=== PATIENT | male | born 1975 ===

== ENCOUNTER 2017-04-13 17:11 | Inpatient (IN) | payer OTHER ==
[2017-04-13] VITALS (315 sets, daily range): BP systolic 128–178; BP diastolic 89–113; PULSE 116–124; TEMP 97.5–99.6; O2SAT 79–100
[~2017-04-13] VITALS: Ht 182.9 cm; Wt 72.8 kg
[2017-04-13 18:50] LABS: BASO # 0.1 (0.0-0.2); BASO % 1.2 % (0.0-2.0); EOS % 0.3 % (0-4.0); GRAN # 7.1 (1.4-6.5); GRAN % 65.8 % (42.2-75.2); HEMATOCRIT 40.5 % (42.0-52.0); HEMOGLOBIN 13.5 g/dl (13.5-18.0); LYMPH % 18.8 % (20.0-51.0); MEAN CELL VOLUME 96 fl (80.0-100.0); MEAN CORPUSCULAR HEMOGLOBIN 32 pg (27.0-31.0); MEAN CORPUSCULAR HGB CONC 33 g/dl (33.0-37.0); MEAN PLATELET VOLUME 10.3 fl (7.4-10.4); MONO # 1.4 (0.1-0.6); MONO % 13.2 % (1.7-9.3); PLATELET COUNT 341 K/mm3 (130-400); WHITE BLOOD COUNT 10.7 K/mm3 (4.8-10.8)
[2017-04-13 19:01] LABS: ALBUMIN 4.3 gm/dL (3.5-5.0); BILIRUBIN,TOTAL 0.8 mg/dL (0.0-1.0); CALCIUM 9.2 mg/dL (8.4-10.2); CREATININE, serum 0.75 mg/dL (0.66-1.25); MAGNESIUM 1.7 mg/dL (1.6-2.3); POTASSIUM 3.7 mmol/L (3.4-5.0); TOTAL PROTEIN 6.9 gm/dL (6.4-8.2)
[2017-04-13 19:05] LABS: PROTHROMBIN TIME 11.6 SECONDS (9.7-12.8)
[2017-04-13 19:08] LABS: PARTIAL THROMBOPLASTIN TIME 31.8 SECONDS (26.0-37.0)
[2017-04-13 19:34] LABS: ARTERIAL BLD GAS O2 SATURATION 99.3 % (92-100); ARTERIAL BLD GAS TCO2 CT 21.1; ARTERIAL BLOOD GAS HCO3 20.1 meq/L (22-26); ARTERIAL BLOOD GAS pH 7.39 (7.35-7.45); OXYHEMOGLOBIN 98.1 %
[2017-04-13 19:35] LABS: ABG VENTILATOR TIDAL VOLUME 450 mL; ARTERIAL BLOOD GAS PO2 374.4 mmHg (80-100); ATS? YES
[2017-04-13 22:34] LABS: COLLECTION METHOD CATHETER
[2017-04-13 22:40] LABS: MUCOUS Present /lpf; PH 5 (5-8); SQUAMOUS EPITHELIAL 0-2 /hpf; URINE APPEARANCE Clear; URINE BACTERIA None Seen /hpf; URINE BILIRUBIN Negative (NEGATIVE); URINE BLOOD 1+ (NEGATIVE); URINE COLOR Yellow; URINE GLUCOSE Negative (NEGATIVE); URINE KETONE Trace (NEGATIVE); URINE LEUKOCYTE ESTERASE Negative (NEGATIVE); URINE PROTEIN(semi-quant) Negative (NEGATIVE); URINE UROBILINOGEN Negative (NEGATIVE); URINE WBC 0-2 /hpf
[2017-04-13 22:48] LABS: ARTERIAL BLD GAS O2 SATURATION 96.7 % (92-100); ARTERIAL BLD GAS TCO2 CT 21.6; ARTERIAL BLOOD GAS BASE EXCESS -3.7 (-2-2); ARTERIAL BLOOD GAS HCO3 20.5 meq/L (22-26); ARTERIAL BLOOD GAS pH 7.39 (7.35-7.45); OXYHEMOGLOBIN 95.9 %
[2017-04-13 22:49] LABS: ABG VENTILATOR TIDAL VOLUME 450 mL; ATS? YES
[2017-04-14] VITALS (1195 sets, daily range): BP systolic 124–148; BP diastolic 84–105; PULSE 72–88; TEMP 97–98.6; O2SAT 79–100
[2017-04-14 05:31] LABS: ABG VENTILATOR TIDAL VOLUME 450 mL; ARTERIAL BLD GAS O2 SATURATION 96.3 % (92-100); ARTERIAL BLD GAS TCO2 CT 22.6; ARTERIAL BLOOD GAS BASE EXCESS -3.1 (-2-2); ARTERIAL BLOOD GAS HCO3 21.4 meq/L (22-26); ARTERIAL BLOOD GAS PO2 89.7 mmHg (80-100); ARTERIAL BLOOD GAS pH 7.38 (7.35-7.45); ATS? YES; OXYHEMOGLOBIN 95.6 %
[2017-04-14 05:37] LABS: BASO # 0.1 (0.0-0.2); BASO % 0.7 % (0.0-2.0); EOS # 0.2 (0.0-0.7); GRAN # 10.7 (1.4-6.5); GRAN % 72.1 % (42.2-75.2); HEMOGLOBIN 12.7 g/dl (13.5-18.0); LYMPH # 2.2 (1.2-3.4); LYMPH % 14.7 % (20.0-51.0); MEAN CELL VOLUME 98 fl (80.0-100.0); MEAN CORPUSCULAR HEMOGLOBIN 32 pg (27.0-31.0); MEAN CORPUSCULAR HGB CONC 33 g/dl (33.0-37.0); MEAN PLATELET VOLUME 10.4 fl (7.4-10.4); MONO # 1.6 (0.1-0.6); MONO % 10.9 % (1.7-9.3); PLATELET COUNT 253 K/mm3 (130-400); RED BLOOD COUNT 3.98 M/mm3 (4.20-5.60); WHITE BLOOD COUNT 14.9 K/mm3 (4.8-10.8)
[2017-04-14 05:49] LABS: CALCIUM 8.6 mg/dL (8.4-10.2); CREATININE, serum 0.68 mg/dL (0.66-1.25); MAGNESIUM 2.1 mg/dL (1.6-2.3); PHOSPHOROUS 3.2 mg/dL (2.5-4.5); POTASSIUM 3.1 mmol/L (3.4-5.0)
[2017-04-14 19:08] LABS: MAGNESIUM 2.1 mg/dL (1.6-2.3); PHOSPHOROUS 2.4 mg/dL (2.5-4.5); POTASSIUM 3.3 mmol/L (3.4-5.0)
[2017-04-15] VITALS (748 sets, daily range): BP systolic 118–167; BP diastolic 78–108; PULSE 70–108; TEMP 98.2–98.9; O2SAT 91–100
[2017-04-15 05:29] LABS: ARTERIAL BLD GAS O2 SATURATION 97.5 % (92-100); ARTERIAL BLD GAS TCO2 CT 19.4; ARTERIAL BLOOD GAS BASE EXCESS -6.5 (-2-2); ARTERIAL BLOOD GAS HCO3 18.3 meq/L (22-26); ARTERIAL BLOOD GAS pH 7.35 (7.35-7.45)
[2017-04-15 05:31] LABS: ABG VENTILATOR TIDAL VOLUME 450 mL; ATS? YES
[2017-04-15 05:43] LABS: BASO # 0.1 (0.0-0.2); BASO % 1.2 % (0.0-2.0); EOS # 0.5 (0.0-0.7); EOS % 4.3 % (0-4.0); GRAN # 6.6 (1.4-6.5); GRAN % 60.9 % (42.2-75.2); HEMATOCRIT 37.4 % (42.0-52.0); HEMOGLOBIN 11.9 g/dl (13.5-18.0); LYMPH # 2.3 (1.2-3.4); LYMPH % 21.4 % (20.0-51.0); MEAN CELL VOLUME 101 fl (80.0-100.0); MEAN CORPUSCULAR HEMOGLOBIN 32 pg (27.0-31.0); MEAN CORPUSCULAR HGB CONC 32 g/dl (33.0-37.0); MEAN PLATELET VOLUME 10.1 fl (7.4-10.4); MONO # 1.3 (0.1-0.6); MONO % 11.6 % (1.7-9.3); PLATELET COUNT 264 K/mm3 (130-400); WHITE BLOOD COUNT 10.8 K/mm3 (4.8-10.8)
[2017-04-15 05:53] LABS: CALCIUM 8.1 mg/dL (8.4-10.2); CREATININE, serum 0.69 mg/dL (0.66-1.25); MAGNESIUM 2.1 mg/dL (1.6-2.3); PHOSPHOROUS 2.5 mg/dL (2.5-4.5); POTASSIUM 3.4 mmol/L (3.4-5.0)
[2017-04-15 10:59] LABS: ARTERIAL BLD GAS O2 SATURATION 95.6 % (92-100); ARTERIAL BLOOD GAS BASE EXCESS -0.2 (-2-2); ARTERIAL BLOOD GAS PHT 7.49 C (7.35-7.45); ARTERIAL BLOOD GAS PO2 71.1 mmHg (80-100); ARTERIAL BLOOD GAS PO2T 71.1 (80-100); ARTERIAL BLOOD GAS pH 7.49 (7.35-7.45); OXYHEMOGLOBIN 94.7 %
[2017-04-15 11:00] LABS: ATS? YES
[2017-04-16] VITALS (159 sets, daily range): BP systolic 122–156; BP diastolic 83–118; PULSE 83–109; TEMP 97.8–99; O2SAT 81–100
[2017-04-16 05:57] LABS: BASO # 0.2 (0.0-0.2); BASO % 1.8 % (0.0-2.0); EOS # 0.3 (0.0-0.7); GRAN % 56.6 % (42.2-75.2); HEMATOCRIT 43.6 % (42.0-52.0); LYMPH # 2.4 (1.2-3.4); LYMPH % 22.9 % (20.0-51.0); MEAN CELL VOLUME 98 fl (80.0-100.0); MEAN CORPUSCULAR HEMOGLOBIN 32 pg (27.0-31.0); MEAN CORPUSCULAR HGB CONC 32 g/dl (33.0-37.0); MEAN PLATELET VOLUME 10.7 fl (7.4-10.4); MONO # 1.6 (0.1-0.6); MONO % 14.8 % (1.7-9.3); PLATELET COUNT 322 K/mm3 (130-400); RED BLOOD COUNT 4.46 M/mm3 (4.20-5.60); WHITE BLOOD COUNT 10.6 K/mm3 (4.8-10.8)
[2017-04-16 06:06] LABS: CREATININE, serum 0.69 mg/dL (0.66-1.25); HEMOGLOBIN 14.1 g/dl (13.5-18.0); MAGNESIUM 2.1 mg/dL (1.6-2.3); PHOSPHOROUS 3.1 mg/dL (2.5-4.5); POTASSIUM 3.4 mmol/L (3.4-5.0)
[2017-04-17 04:06] VITALS: BP 136/91; PULSE 87; TEMP 98.3
[2017-04-17 06:43] LABS: MAGNESIUM 2.1 mg/dL (1.6-2.3); PHOSPHOROUS 4.2 mg/dL (2.5-4.5)
[2017-04-17 08:03] VITALS: BP 137/89; PULSE 95; TEMP 97.8
[2017-04-17 09:27] VITALS: BP 146/90; PULSE 100; TEMP 99.4
[2017-04-17 12:18] VITALS: BP 163/103; PULSE 95; TEMP 99
[2017-04-17 14:03] VITALS: BP 153/103; PULSE 117; TEMP 97.4
[2017-04-17] MEDS ORDERED: LIBRIUM 25M25 MG/CAP PO (15:40)
== END 2017-04-17 16:15 | disposition home or self-care (01) | DRG 896 ==
LOC: IMCU 17:11 → ICU 17:44 → MEDICAL 17:44
PROVIDERS: Internal Medicine; Internal Medicine Pulmonary Disease; Nurse Practitioner Family
PROC: 0BH18EZ Insertion of Endotracheal Airway into Trachea, Via Natural or Artificial Opening Endoscopic (ICD-10-PCS; principal; 2017-04-13)
PROC: 5A1945Z Respiratory Ventilation, 24-96 Consecutive Hours (ICD-10-PCS; 2017-04-13)
DX: F10.231 Alcohol dependence with withdrawal delirium (principal); J18.9 Pneumonia, unspecified organism; S22.43XA Multiple fractures of ribs, bilateral, initial encounter for closed fracture; F43.10 Post-traumatic stress disorder, unspecified; F41.8 Other specified anxiety disorders; F12.10 Cannabis abuse, uncomplicated; Z87.891 Personal history of nicotine dependence; W18.30XA Fall on same level, unspecified, initial encounter; E87.6 Hypokalemia
CPT/HCPCS: 99223-AI; 99232-AI; 99233-AI; 99239; J1630; J1644; J1650; J2060; J2250; J2543; J2704; J3010; J3411; J3480; J7030; J7040; J7050